=== PATIENT | female | born 1985 | race Caucasian/White ===

== ENCOUNTER 2016-11-14 13:33 | Emergency (ER) | payer BC ==
[~2016-11-14] VITALS: Ht 185.4 cm; Wt 79.9 kg
[~2016-11-14 13:33] MED LIST: PRENTAB26 PO
[2016-11-14 13:49] VITALS: TEMP 36.9; Ht 185.4 cm; Wt 79.9 kg
--- NOTE | 2016-11-14 15:09 | EMERGENCY ROOM VISIT NOTE ---
History Report prepared by Manda: Amy Horowitz Under the Supervision of: Dr. Bri Bergman M.D. First contact with patient: 14:35 Chief Complaint: CARDIAC ASSESSMENT Stated Complaint: TIGHT CHEST, LEFT ARM PAIN History of Present Illness The patient is a 31 year old female who presents to the Emergency Room with complaints of intermittent chest pain beginning this morning. The patient states that her pain started in her left elbow and moved up her arm and into her chest and jaw. She reports that it felt like someone "senait chopped" her in the sternum. She notes that her pain went away and then returned 3 hours ago. She states that she started to feel shortness of breath and anxious about coming into the ED. The patient states that she was feeding her child breakfast when her pain started. She denies any abdominal pain, cough, cold, fever, recent trips, recent surgery. The patient notes that she has a history of disc issues and has had back spasms and took muscle relaxers and pain medication for her pain. She notes that she had indigestion and heart burn when she was . Source of History: patient Onset: this morning Position: chest Quality: other (tightness) Timing: intermittent Associated Symptoms: + fevers, + cough, + SOB, + abdominal pain Note: Pt has arm pain and jaw pain. Review of Systems See HPI for pertinent positives & negatives. A total of 10 systems reviewed and were otherwise negative. Past Medical & Surgical Medical Problems: (1) No leakage of amniotic fluid into vagina (2) Normal labor (3) Post term at 41 weeks gestation (4) with 30 completed weeks gestation (5) Vaginal discharge during in third trimester Family History No pertinent family history stated. Social History Smoking Status: Never Smoker Marital Status: Housing Status: lives with significant other Occupation Status: employed Current/Historical Medications Scheduled Multivit/Min/Iron/Fol Ac/Pren ( Vitamin), 1 TAB PO DAILY Omeprazole (Prilosec), 20 MG PO DAILY Allergies Coded Allergies: Sulfa Antibiotics (Verified Allergy, Mild, Unknown rxn, 11/14/16) Physical Exam Vital Signs Date Time Temp Pulse Resp B/P (MAP) Pulse Ox O2 Delivery O2 Flow Rate FiO2 11/14/16 16:53 57 16 110/62 99 11/14/16 15:46 60 16 102/59 99 Room Air 11/14/16 15:01 65 11/14/16 13:52 95 Room Air 11/14/16 13:49 36.9 65 18 126/76 96 Room Air Physical Exam Vital signs reviewed. General: Well-appearing, in no significant distress. HEENT: No scleral icterus, PERRLA, neck supple. Atraumatic. Cardiovascular: Regular rate and rhythm, no extra sounds. Pulmonary: Clear to auscultation bilaterally, normal work of breathing. Abdomen: Soft, nontender, nondistended, positive bowel sounds. Musculoskeletal: Atraumatic, no peripheral edema. Neurologic: Patient awake alert and oriented x 3, full strength in all 4 extremities. Cranial nerves 2 through 12 grossly intact. Skin: Warm, dry, no rash Medical Decision & Procedures ER Provider Diagnostic Interpretation: Radiology results as stated below per my review and radiologist interpretation: CHEST ONE VIEW PORTABLE FINDINGS: Lung volumes are normal. There is no pneumothorax or pleural effusion. Lungs are clear. Cardiac size is normal. Mediastinal contours are unremarkable. There is no evidence of pulmonary edema. IMPRESSION: No acute cardiopulmonary findings. Electronically signed by: Noah Graff M.D. 11/14/2016 3:41 PM Dictated Date/Time: 11/14/2016 3:41 PM Right upper quadrant ultrasound GALLBLADDER-ABD LIMITED FINDINGS: Gallbladder is normal. Mild hepatomegaly. 2 small hemangiomas of the right hepatic lobe. Normal caliber bile ducts. Common bile duct 4 mm. Right kidney is negative for hydronephrosis. IMPRESSION: 1. Mild hepatomegaly. 2. Otherwise negative study Electronically signed by: Harsha Bruno M.D. 11/14/2016 4:27 PM Dictated Date/Time: 11/14/2016 4:25 PM Laboratory Results 11/14/16 14:40 Red Blood Count 4.48, Mean Corpuscular Volume 92.4, Mean Corpuscular Hemoglobin 31.7, Mean Corpuscular Hemoglobin Concent 34.3, Mean Platelet Volume 10.7, Neutrophils (%) (Auto) 51.5, Lymphocytes (%) (Auto) 39.8, Monocytes (%) (Auto) 6.4, Eosinophils (%) (Auto) 1.4, Basophils (%) (Auto) 0.7, Neutrophils # (Auto) 2.89, Lymphocytes # (Auto) 2.23, Monocytes # (Auto) 0.36, Eosinophils # (Auto) 0.08, Basophils # (Auto) 0.04 11/14/16 14:40 Test 11/14/16 14:40 11/14/16 15:24 11/14/16 15:27 White Blood Count 5.61 K/uL (4.8-10.8) Red Blood Count 4.48 M/uL (4.2-5.4) Hemoglobin 14.2 g/dL (12.0-16.0) Hematocrit 41.4 % (37-47) Mean Corpuscular Volume 92.4 fL (80-100) Mean Corpuscular Hemoglobin 31.7 pg (25-34) Mean Corpuscular Hemoglobin Concent 34.3 g/dl (32-36) Platelet Count 205 K/uL (130-400) Mean Platelet Volume 10.7 fL (7.4-10.4) Neutrophils (%) (Auto) 51.5 % Lymphocytes (%) (Auto) 39.8 % Monocytes (%) (Auto) 6.4 % Eosinophils (%) (Auto) 1.4 % Basophils (%) (Auto) 0.7 % Neutrophils # (Auto) 2.89 K/uL (1.4-6.5) Lymphocytes # (Auto) 2.23 K/uL (1.2-3.4) Monocytes # (Auto) 0.36 K/uL (0.11-0.59) Eosinophils # (Auto) 0.08 K/uL (0-0.5) Basophils # (Auto) 0.04 K/uL (0-0.2) RDW Standard Deviation 42.5 fL (36.4-46.3) RDW Coefficient of Variation 12.5 % (11.5-14.5) Immature Granulocyte % (Auto) 0.2 % Immature Granulocyte # (Auto) 0.01 K/uL (0.00-0.02) Anion Gap 7.0 mmol/L (3-11) Est Creatinine Clear Calc Drug Dose 101.3 ml/min Estimated GFR () 92.4 Estimated GFR (Non- 79.7 BUN/Creatinine Ratio 16.4 (10-20) Calcium Level 9.1 mg/dl (8.5-10.1) Total Bilirubin 0.4 mg/dl (0.2-1) Direct Bilirubin 0.1 mg/dl (0-0.2) Aspartate Amino Transf (AST/SGOT) 21 U/L (15-37) Alanine Aminotransferase (ALT/SGPT) 30 U/L (12-78) Alkaline Phosphatase 91 U/L (45-117) Total Protein 7.5 gm/dl (6.4-8.2) Albumin 4.2 gm/dl (3.4-5.0) Lipase 137 U/L (73-393) Bedside D-Dimer 191 ng/mlFEU (0-450) Bedside Troponin I < 0.030 ng/ml (0-0.045) Urine Color YELLOW Urine Appearance CLEAR (CLEAR) Urine pH 8.0 (4.5-7.5) Urine Specific [place] 1.009 (1.000-1.030) Urine Protein NEG (NEG) Urine Glucose (UA) NEG (NEG) Urine Ketones NEG (NEG) Urine Occult Blood NEG (NEG) Urine Nitrite NEG (NEG) Urine Bilirubin NEG (NEG) Urine Urobilinogen NEG (NEG) Urine Leukocyte Esterase TRACE (NEG) Urine WBC (Auto) 5-10 /hpf (0-5) Urine RBC (Auto) 0-4 /hpf (0-4) Urine Hyaline Casts (Auto) 1-5 /lpf (0-5) Urine Epithelial Cells (Auto) >30 /lpf (0-5) Urine Bacteria (Auto) 1+ (NEG) Urine Test NEG (NEG) Date/Time Source Procedure Growth Status 11/14/16 15:27 Urine , Clean Catch Urine Culture - Final Lactobacillus Species Gardnerella-Like Bacilli Complete Laboratory results per my review. ECG Indication: chest pain Rate (beats per minute): 62 Rhythm: normal sinus Findings: no acute ischemic change, no ectopy ED Course 1435: Past medical records reviewed. The patient was evaluated in room B9. A complete history and physical examination was performed. 1646: Upon reevaluation, the patient appeared to have improvement of her symptoms. I discussed findings with the patient. She verbalized agreement of the treatment plan. The patient was discharged home. Medical Decision DDx: Acute coronary syndrome, pulmonary embolus, aortic dissection, musculoskeletal pain, pneumonia, pleural effusion, pneumothorax Medication Reconciliation: I attest that I have personally reviewed the patient' s current medication list. Blood Pressure Screening: Patient was found to have normal blood pressure on screening and does not require follow-up. This pt was evaluated and appears to be in no distress. IV access was obtained and lab work was drawn. Pt was placed on the cardiac exercise specialist. EKG was negative for ischemia or ectopy. Lab work reveals normal troponin and d-dimer. CXR is clear. Pt was given a Rx for prilosec x 30 days. She was advised to f/ u with PCP for reevaluation and consideration of further cardiac/GI workup as indicated. She will return to the ED for worsening of symptoms or any medical concerns. Impression Primary Impression: Chest pain radiating to arm Scribe Attestation The scribe's documentation has been prepared under my direction and personally reviewed by me in its entirety. I confirm that the note above accurately reflects all work, treatment, procedures, and medical decision making performed by me. Departure Information Dispostion Home / Self-Care Prescriptions Omeprazole (PRILOSEC) 20 Mg Capcr 20 MG PO DAILY, #30 CAP Prov: Bri Bergman M.D. 11/14/16 Referrals No Doctor, Assigned (PCP) Forms IMPORTANT VISIT INFORMATION Patient Instructions My [facility] Additional Instructions Diagnosis: Chest pain with radiation to the arm. Prilosec 20 mg daily for the next 30 days. Avoid excessive alcohol and caffeine. Minimize aspirin, ibuprofen and Aleve. Follow-up with your physician for reevaluation, especially if symptoms continue. Return to the ER immediately for worsening of symptoms or any medical concerns.
[2016-11-14 15:17] LABS: BASO % 0.7 %; BASO ABS # 0.04 K/uL (0-0.2); COMPLETE YES; EOS % 1.4 %; HEMATOCRIT 41.4 % (37-47); IG% 0.2 %; LYMPH % 39.8 %; LYMPH ABS # 2.23 K/uL (1.2-3.4); MEAN CELL VOLUME 92.4 fL (80-100); MEAN CORPUSCULAR HEMOGLOBIN 31.7 pg (25-34); MEAN CORPUSCULAR HGB CONC 34.3 g/dl (32-36); MEAN PLATELET VOLUME 10.7 fL (7.4-10.4); MONO % 6.4 %; NEUT % 51.5 %; PLATELET COUNT 205 K/uL (130-400); RED BLOOD COUNT 4.48 M/uL (4.2-5.4); WHITE BLOOD COUNT 5.61 K/uL (4.8-10.8)
[2016-11-14 15:25] LABS: BUN/CREATININE RATIO 16.4 (10-20); CALCIUM 9.1 mg/dl (8.5-10.1); CREATININE 0.94 mg/dl (0.60-1.20); POTASSIUM 3.9 mmol/L (3.5-5.1)
[2016-11-14 15:43] LABS: POINT OF CARE TROPONIN I < 0.030 ng/ml (0-0.045)
--- NOTE | 2016-11-14 15:43 | DIAGNOSTIC IMAGING REPORT ---
CHEST ONE VIEW PORTABLE CLINICAL HISTORY: Chest pain and shortness of breath. COMPARISON STUDY: Chest radiograph December 02, 2008. FINDINGS: Lung volumes are normal. There is no pneumothorax or pleural effusion. Lungs are clear. Cardiac size is normal. Mediastinal contours are unremarkable. There is no evidence of pulmonary edema. IMPRESSION: No acute cardiopulmonary findings. Electronically signed by: Noah Graff M.D. 11/14/2016 3:41 PM Dictated Date/Time: 11/14/2016 3:41 PM
[2016-11-14 15:50] LABS: URINE APPEARANCE CLEAR (CLEAR); URINE BILIRUBIN NEG (NEG); URINE COLOR YELLOW; URINE EPITHELIAL CELL AUTO >30 /lpf (0-5); URINE NITRITE NEG (NEG); URINE SPECIFIC GRAVITY 1.009 (1.000-1.030); UROBILINOGEN NEG (NEG); ZZUR CULT IF INDIC CLEAN CATCH YES
[2016-11-14 15:54] LABS: MANUAL MICROSCOPIC REQUIRED? NO; REVIEW REQ? NO
[2016-11-14] MEDS ORDERED: PRLSR20 PO (16:22)
--- NOTE | 2016-11-14 16:29 | DIAGNOSTIC IMAGING REPORT ---
Right upper quadrant ultrasound GALLBLADDER-ABD LIMITED CLINICAL HISTORY: epigastric pain nausea TECHNIQUE: Ultrasound COMPARISON STUDY: None FINDINGS: Gallbladder is normal. Mild hepatomegaly. 2 small hemangiomas of the right hepatic lobe. Normal caliber bile ducts. Common bile duct 4 mm. Right kidney is negative for hydronephrosis. IMPRESSION: 1. Mild hepatomegaly. 2. Otherwise negative study Electronically signed by: Harsha Bruno M.D. 11/14/2016 4:27 PM Dictated Date/Time: 11/14/2016 4:25 PM
[2016-11-14 16:53] VITALS: BP 110/62; PULSE 57; O2SAT 99
== END 2016-11-14 16:56 | disposition home or self-care (01) ==
LOC: C.EDB 13:36
DX: R07.9 Chest pain, unspecified (principal); Z88.2 Allergy status to sulfonamides; Z79.899 Other long term (current) drug therapy

== ENCOUNTER → 2017-01-15 | Outpatient (CLI) | payer BC ==
[~2017-01-15] MED LIST changes: +PRLSR20 PO
== END | disposition home or self-care (01) ==
LOC: C.PAPS 07:45
PROVIDERS: ATTEND Physician Assistant
DX: Z01.419 Encounter for gynecological examination (general) (routine) without abnormal findings (principal)

== ENCOUNTER → 2017-01-15 | Outpatient (CLI) | payer BC ==
[2017-01-15 15:47] LABS: HEMATOCRIT 40.2 % (37-47); MEAN CELL VOLUME 93.1 fL (80-100); MEAN CORPUSCULAR HEMOGLOBIN 31.7 pg (25-34); MEAN CORPUSCULAR HGB CONC 34.1 g/dl (32-36); MEAN PLATELET VOLUME 11.1 fL (7.4-10.4); PLATELET COUNT 190 K/uL (130-400); RED BLOOD COUNT 4.32 M/uL (4.2-5.4); WHITE BLOOD COUNT 4.52 K/uL (4.8-10.8)
== END | disposition home or self-care (01) ==
LOC: C.LAB1850 15:03
PROVIDERS: ATTEND Physician Assistant
DX: N92.0 Excessive and frequent menstruation with regular cycle (principal)

== ENCOUNTER → 2017-12-29 | Outpatient (CLI) | payer BC ==
[~2017-12-29] MED LIST changes: -PRLSR20 PO
== END | disposition home or self-care (01) ==
LOC: C.LAB1850 13:40
PROVIDERS: ATTEND Obstetrics & Gynecology
DX: N91.2 Amenorrhea, unspecified (principal)

== ENCOUNTER 2023-05-06 17:28 | Inpatient (IN) ==
[2023-05-06] MEDS ORDERED: OXYTOCIN 30 UNITS/NSS 30 UNITS/500 ML BAG IV PRN ×2 (19:10)
[2023-05-06] MEDS ORDERED: LIDOCAINE 1% LOCAL 20 ML VIAL INFIL PRN (19:10)
--- NOTE | 2023-05-06 19:34 | History & Physical Report ---
Date of Service May 06, 2023 Assessment & Plan (1) Supervision of elderly multigravida: Plan: Nicole is a 37-year-old G4, P2 currently at 39 weeks 4 days gestational age presents for induction of labor. 1. Fetus: Category 1 tracing 2. Labor: We will start oxytocin per regular protocol and rupture membranes when appropriate 3. GBS negative 4. Vitals within normal limits (2) AMA (advanced maternal age) primigravida 35+: Admission and Anticipated Discharge Date Admission Date: May 06, 2023 History of Present Illness Primary Care Provider: NO PCP Nicole is a 37-year-old G4, P2 currently at 39 weeks 4 days gestational age presents for induction of labor. complicated by advanced maternal age and suspected large for gestational age with ultrasound at 93rd percentile at last evaluation. OB Labs: Blood Type O Positive 10/02/22 Antibody Screen NEGATIVE 10/02/22 Hemoglobin 12.1 g/dl (12.0-16.0) 04/09/23 Hematocrit 35.8 % (37.0-47.0) L 04/09/23 Mean Corpuscular Volume 91.4 fL (80.0-100.0) 10/02/22 Platelet Count 201 K/uL (130-400) 10/02/22 Rubella IgG Antibody Equivocal (Immune) L 10/02/22 Rapid Plasma Reagin Nonreactive (Nonreactive) 10/02/22 Hepatitis B Surface Antigen. NON-REACTIVE (NON-REACTIVE) 10/02/22 Hepatitis C Antibody (EIA) NON-REACTIVE (NON-REACTIVE) 10/02/22 HIV (1&2) Ag and Ab Confirmation NON-REACTIVE (NON-REACTIVE) 10/02/22 OB Optional Labs: Chlamydia trachomatis RNA Not Detected (NotDetected) 10/01/22 Neisseria gonorrhoeae RNA Not Detected (NotDetected) 10/01/22 Labs Reviewed: panorama--low risk but could not result Trisomy X - declines rescreen - sln 12/24 declines afp - sln Allergies Allergy/AdvReac Type Severity Reaction Status Date / Time Sulfa (Sulfonamide Allergy Mild Unknown rxn Verified 05/05/23 09:59 Antibiotics) Home Medications Medication Instructions Recorded Confirmed Type prenat.vits,tesha,[id number] 1 tab PO DAILY 09/23/22 05/06/23 History Patient History Medical History (Updated 05/06/23 @ 19:33 by Miles Madrigal MD) Menorrhagia Jaw pain IUD threads lost IUD check up Female pelvic pain Encounter for gynecological examination without abnormal finding Encounter for cosmetic surgery Chronic sinusitis Anxiety disorder Amenorrhea Acquired deviated nasal septum Abnormal uterine bleeding (AUB) Endometriosis Hx of ovarian cyst Vaginal discharge during in third trimester with 30 completed weeks gestation Post term at 41 weeks gestation Normal labor No leakage of amniotic fluid into vagina Surgical History S/P left knee arthroscopy S/P shoulder surgery S/P tooth extraction S/P laparoscopy x 2 for endometriosis, 1 simultaneously as appy S/P breast augmentation S/P appendectomy Family History (Updated 04/11/20 @ 11:02 by Lesley Bunch MD) Grandmother (Maternal) Breast cancer dx in 20s Mother Endometriosis Sister Hyperlipidemia Obesity Father Hyperlipidemia Grandmother (Paternal) Hypertension Denies family history of Ovarian cancer Colorectal cancer Uterine cancer Social History (Updated 09/23/22 @ 11:08 by Shari Parada) Smoking Status: Never smoker Do You Dip or Chew Tobacco: No; Hx Alcohol Use: No Hx Substance Use: No Preferred Language: Mongolian Whip Operator Required: No Beliefs That Will Affect Care: None marital status: marital status details: Rich (52) [phone] Current Living Situation: Spouse and Family Current Living Situation Comment: 4 kids current occupational status: employed current occupation: Realtor Feels Safe at Home: Yes Safety Concerns: Feels Safe At This Time Physical Exam Genitourinary: OB Exam Abdomen: + vertex Manual OB Exam: + cervical dilation 2 cm, + cervical effacement 40% and + station -2 OB Exam Monitor Tracing: + external FHT monitor used, + external uterine monitor used, + category I and + normal FHT variability; no early decelerations present, no late decelerations present and no variable decelerations Coding Level of Care Code None Diagnoses Encounter for supervision of multigravida of advanced maternal age in third trimester O09.523 Trimester: third trimester Primigravida of advanced maternal age in third trimester O09.513 Trimester: third trimester (1) Supervision of elderly multigravida Trimester: third trimester Qualified Code(s): O09.523 - Supervision of elderly multigravida, third trimester (2) AMA (advanced maternal age) primigravida 35+ Trimester: third trimester Qualified Code(s): O09.513 - Supervision of elderly primigravida, third trimester
[2023-05-06 19:54] LABS: Hematocrit (blood only) 36.1 % (37.0-47.0); Hemoglobin 12.2 g/dl (12.0-16.0); Mean Corpuscular Hemoglobin 31.9 pg (25.0-34.0); Mean Corpuscular Hgb Conc 33.8 g/dL (32.0-36.0); Mean Corpuscular Volume 94.3 fL (80.0-100.0); Mean Platelet Volume 11.4 fL (9.4-12.4); Platelet Count 153 K/uL (130-400); RDW Coefficient of Variation 13.3 % (11.5-14.5); RDW Standard Deviation 45.7 fL (36.4-46.3); Red Blood Count 3.83 M/uL (4.20-5.40); White Blood Count 7.21 K/ul (4.8-10.8)
[2023-05-06] MEDS: LACTATED RINGER'S 1,000 ML IV PRN ×2 (21:23→23:40)
[2023-05-06] MEDS ORDERED: ePHEDrine sulfate 50 MG/ML AMP ONE (22:46)
[2023-05-06] MEDS ORDERED: fentaNYL citrate PF 100 MCG/2 ML VIAL ONE (22:46)
[2023-05-06] MEDS ORDERED: SODIUM CHLORIDE 0.9% PF INJ 10 ML VIAL ONE (22:47)
[2023-05-06] MEDS ORDERED: fentANYL 2 MCG/ML BUPIVacaine 0.125%-NSS 100ML BAG ONE (22:47)
[2023-05-06] MEDS ORDERED: BUPIVACAINE 0.25% PF 30 ML VIAL ONE (22:47)
[2023-05-06] MEDS ORDERED: LIDOCAINE 2%/EPINEPHRINE 1:200,000 20 ML PF ONE (22:47)
[2023-05-06] MEDS ORDERED: NALBUPHINE HCL 5 MG in SYRINGE 0 ML IV PRN (22:59)
[2023-05-06] MEDS ORDERED: LIDOCAINE 2%/EPINEPHRINE 1:200,000 20 ML PF EPI STA (22:59)
[2023-05-06] MEDS ORDERED: diphenhydrAMINE 50 MG/ML VIAL IV PRN (22:59)
[2023-05-06] MEDS ORDERED: SODIUM CHLORIDE 0.9% PF INJ 10 ML VIAL EPI STA (22:59)
[2023-05-06] MEDS ORDERED: fentaNYL citrate PF 100 MCG/2 ML VIAL EPI STA (22:59)
[2023-05-06] MEDS ORDERED: ROPIVACAINE 0.5% PF 5 MG/ML 20 ML VIAL EPI PRN (22:59)
[2023-05-06] MEDS ORDERED: NALOXONE HCL 1 MG in SODIUM CHLORIDE 0.9% 1,000 ML IV PRN (22:59)
[2023-05-06] MEDS ORDERED: fentaNYL citrate PF 100 MCG/2 ML VIAL EPI PRN (22:59)
[2023-05-06] MEDS ORDERED: ePHEDrine sulfate 50 MG/ML AMP IV PRN (22:59)
[2023-05-06] MEDS ORDERED: BUPIVACAINE 0.25% PF 30 ML VIAL EPI STA (22:59)
[2023-05-06] MEDS ORDERED: BUPIVACAINE 0.25% PF 30 ML VIAL EPI PRN (22:59)
[2023-05-06] MEDS ORDERED: NALOXONE HCL 0.4 MG/1 ML VIAL/CARP IV PRN (22:59)
[2023-05-06] MEDS ORDERED: LIDOCAINE 2% MPF LOCAL 5 ML VIAL EPI PRN (22:59)
[2023-05-06] MEDS ORDERED: SODIUM CHLORIDE 0.9% PF INJ 10 ML VIAL EPI PRN (22:59)
[2023-05-06] MEDS ORDERED: fentANYL 2 MCG/ML BUPIVacaine 0.125%-NSS 100ML BAG EPI PRN (22:59)
--- NOTE | 2023-05-06 23:03 | Anesthesiology Consultation ---
Date of Service May 06, 2023 Assessment & Plan Chart Review Chart Review: Patient NOT seen in Pre Admission Testing and Acceptable Risk for Labor Epidural ASA ASA2 Proposed Anesthesia Anesthesia Type: Labor Epidural Risk / Benefits Reviewed With: PT / POA / Parent / Guardian, Accepts Plan and Informed Consent Obtained History Height/Weight Height: 6 ft 1 in Weight: 102.965 kg Allergies Allergy/AdvReac Type Severity Reaction Status Date / Time Sulfa (Sulfonamide Allergy Mild Unknown rxn Verified 05/05/23 09:59 Antibiotics) Medications Home Medications Medication Instructions Recorded Confirmed Last Taken prenat.vits,tesha,[id number] 1 tab PO DAILY 09/23/22 05/06/23 05/03/23 Active Medications Generic Name Dose Route Start Last Admin Trade Name Freq PRN Reason Stop Dose Admin Ephedrine Sulfate 10 mg 05/06/23 22:59 05/06/23 23:38 Ephedrine Sulfate 50 Mg/Ml Amp IV 05/07/23 22:58 10 mg Q5M PRN Administration Hypotension Fentanyl/Bupivacaine/Sodium Chlor 100 ml 05/06/23 22:59 05/06/23 23:35 Fentanyl 2 Mcg/Ml Bupivacaine 0.125%-Nss 100ml Bag EPI 05/07/23 22:58 100 ml PRN PRN Administration Pain R/T Labor Protocol Oxytocin 30 units in 500 mls @ 4 mls/hr 05/06/23 19:10 05/06/23 22:10 Pitocin 30 Units/Nss IV 05/08/23 19:09 0.24 units/hr .Q24H PRN 4 mls/hr Labor Induction/Augmentation Titration Protocol 0.24 UNITS/HR Lactated Ringer's 1,000 mls @ 125 mls/hr 05/06/23 19:10 05/06/23 23:40 Lr IV 05/08/23 19:09 125 mls/hr .Q8H PRN Administration L&D Protocol Protocol Past Medical History Medical History Menorrhagia Jaw pain IUD threads lost IUD check up Female pelvic pain Encounter for gynecological examination without abnormal finding Encounter for cosmetic surgery Chronic sinusitis Anxiety disorder Amenorrhea Acquired deviated nasal septum Abnormal uterine bleeding (AUB) Endometriosis Hx of ovarian cyst Vaginal discharge during in third trimester with 30 completed weeks gestation Post term at 41 weeks gestation Normal labor No leakage of amniotic fluid into vagina Exercise / Class Metabolic Activity II 4-5 Yardwork/Stairs/Walk up hill Past Family History Family History Grandmother (Maternal) Breast cancer dx in 20s Mother Endometriosis Sister Hyperlipidemia Obesity Father Hyperlipidemia Grandmother (Paternal) Hypertension Denies family history of Ovarian cancer Colorectal cancer Uterine cancer Past Surgical History Surgical History S/P left knee arthroscopy S/P shoulder surgery S/P tooth extraction S/P laparoscopy x 2 for endometriosis, 1 simultaneously as appy S/P breast augmentation S/P appendectomy Past Anesthesia History No Hx of Anesthesia Complications and No Family Hx of Anesthesia Complications History of PONV No Hx of PONV and No Hx of Motion Sickness Social History Smoking Status: Never smoker Do You Dip or Chew Tobacco: No Hx Alcohol Use: No Hx Substance Use: No Review of Systems ROS Unobtainable: All systems reviewed & are unremarkable except as noted in HPI & below Physical Exam Vital Signs Last Vital Signs Temp 36.8 C 05/06/23 19:51 Pulse 77 05/06/23 22:43 Resp 18 05/06/23 19:51 BP 119/67 05/06/23 22:43 Constitutional no acute distress ENMT Mouth: no TMJ abnormality Thyromental Distance: > or= 3.5 Finger Breadths Mallampati Class: II Neck normal visual inspection and trachea midline; neck extension not limited Respiratory normal respiratory effort Auscultation: lungs clear to auscultation bilaterally Cardiovascular Rate/Rhythm: regular rate and regular rhythm Heart Sounds: no murmur Musculoskeletal Spine: normal cervical ROM Extremities: full ROM of extremities Neurologic moves all extremities Psychiatric Orientation: alert and oriented x 3 Testing Laboratory Results 05/06/23 19:39
[2023-05-07 07:38] VITALS: O2SAT 94
[2023-05-07] MEDS ORDERED: ACETAMINOPHEN 325 MG TAB PO PRN (08:04)
[2023-05-07] MEDS ORDERED: MEASLES, MUMPS & RUBELLA VIRUS VACCINE (MMR) VIAL SQ ONE (08:04)
[2023-05-07] MEDS ORDERED: DIPHTHERIA/TETANUS/PERTUSSIS Vaccine (Tdap, Age 7+yrs) 0.5mL SYR/VL IM ONE (08:04)
[2023-05-07] MEDS ORDERED: HYDROCORTISONE ACETATE 25 MG SUPP PR PRN (08:04)
[2023-05-07] MEDS ORDERED: OXYTOCIN 30 UNITS/NSS 30 UNITS/500 ML BAG IV PRN (08:04)
[2023-05-07] MEDS ORDERED: BENZOCAINE 20% SPRY 85 APPLN/85 GM CAN EXT PRN (08:04)
[2023-05-07] MEDS ORDERED: bisacodyL 10 MG SUPP PR PRN (08:04)
--- NOTE | 2023-05-07 09:13 | Delivery Summary ---
Vaginal Delivery Summary Date of Service May 07, 2023 Vaginal Delivery Summary Nicole progressed to 10 cm dilated 100% effaced +2 station pushed over intact perineum with epidural anesthesia and delivered a viable with weight and Apgars pending. Had the delivered in SANDOR position restituted to right transverse. A double nuchal cord was noted which was reduced. Body and shoulders quickly followed. was noted be vigorous soon after delivery and a 1 minute delayed cord clamping was initiated. Cord was then double clamped and cut. remained on the maternal abdomen. Cord blood was obtained. Attention was then turned to delivery of the placenta which delivered intact with three-vessel cord gentle cord traction. Inspection of the perineum vagina and cervix there is noted to be no lacerations. Needle sponge and instrument counts were correct at the completion of the case. Estimated blood loss 200 mL and no complications noted. [facility] Vaginal Delivery Charge Delivery Type Details: [facility]3]
--- NOTE | 2023-05-07 09:25 | Anesthesia Procedure Note ---
Date of Service May 07, 2023 Anesthesia Post Epidural Note Vital Signs Vital Signs: Temp Pulse Resp BP Pulse Ox 36.7 C 96 H 20 108/56 L 94 05/07/23 07:15 05/07/23 09:13 05/07/23 07:15 05/07/23 09:13 05/07/23 07:37 Notes Mental Status: alert / awake / arousable and participated in evaluation Nausea / Vomiting: adequately controlled Pain: adequately controlled Airway Patency, RR, SpO2: stable & adequate BP & HR: stable & adequate Hydration State: stable & adequate Neuraxial Anesthesia: was administered and sensory block is resolving Anesthetic Complications: no major complications apparent and Pt Satisfied with anesthetic care Epidural: Removed without complications and With tip intact
[2023-05-07] MEDS: FERROUS SULFATE 325 MG TAB PO SCH (11:09)
[2023-05-07] MEDS: DOCUSATE SODIUM 100 MG CAP PO SCH ×2 (11:09→20:09)
[2023-05-07] MEDS: PRENATAL VITAMIN 1 TAB PO SCH (11:09)
[2023-05-07] MEDS: IBUPROFEN 600 MG TAB PO PRN ×2 (15:16→20:09)
--- NOTE | 2023-05-08 04:33 | Obstetrical Progress Note ---
Date of Service <José Miguelsatish Bush DO - Last Filed: 05/08/23 05:57> May 08, 2023 Assessment & Plan <José Miguel Bush - Last Filed: 05/08/23 05:57> (1) (spontaneous vaginal delivery): Plan 33 year old female, , PPD#1: Eating well, voiding well, ambulating well Vitals reviewed, WNL Pain well controlled with motrin Routine post care - OOB, ambulation, diet progression as tolerated Will have 6 week follow up with Dr. Madrigal <Lesley Bunch MD - Last Filed: 05/08/23 07:34> (1) (spontaneous vaginal delivery): Subjective <José Miguel Bush DO - Last Filed: 05/08/23 05:57> Ambulation: ambulating normally Voiding: no voiding problems Passing Gas:: Yes Diet Tolerance:: regular diet Lochia:: Small Feeding Type:: breast feeding Pain well controlled with Motrin Review of Systems -Denies fever or chills -Denies dyspnea, chest pain, or palpitations -Denies dysuria -Denies headache or changes in vision Physical Exam <José Miguel Bush DO - Last Filed: 05/08/23 05:57> General: Alert and oriented. No acute distress Cardiac: Regular rate and rhythm, no murmurs appreciated Respiratory: Lungs clear to auscultation bilaterally, No increased work of breathing Abdominal: Soft, non-tender, non-distended. Bowel sounds present. Uterus: Uterine fundus firm, palpable below umbilicus Extremities: No lower extremity edema, calves non-tender bilaterally Results & Data <José Miguel Bush DO - Last Filed: 05/08/23 05:57> Vital Signs (Past 12 Hours) Vital Signs Temp Pulse Resp BP O2 Del Method 05/08/23 00:24 36.8 C 62 16 110/65 Room Air 05/07/23 20:00 36.6 C 80 16 109/67 Room Air Supervising Physician <Lesley Bunch MD - Last Filed: 05/08/23 07:34> Co-Signing Physician Notes Resident Physician Supervision Note: I interviewed and examined the patient. Discussed with Dr. Bush and agree with findings and plan as documented in the note. Any exceptions or clarifications are listed here: PP1 s/p , doing well. VSS, exam benign and wnl. Desires dc home today Documented By: Lesley Bunch MD Resident Activity Tracking <José Miguel Bush DO - Last Filed: 05/08/23 05:57> Resident Involvement: Resident Care Provided Care Provided: OB Delivery
[2023-05-08 05:41] VITALS: TEMP 97.9
[2023-05-08] MEDS: IBUPROFEN 600 MG TAB PO PRN (06:14)
[2023-05-08] MEDS: PRENATAL VITAMIN 1 TAB PO SCH (07:35)
[2023-05-08] MEDS: DOCUSATE SODIUM 100 MG CAP PO SCH (07:35)
[2023-05-08] MEDS: FERROUS SULFATE 325 MG TAB PO SCH (07:35)
[2023-05-08 09:05] VITALS: BP 114/66; PULSE 64; RESP 18
[2023-05-08] MEDS ORDERED: bisacodyL 5 MG TABEC PO SCH (20:00)
== END 2023-05-08 09:30 | disposition home or self-care (01) | DRG 807 ==
LOC: 4S1 19:09 → 4E2 05-07 11:10
DX: Z3A.39 39 weeks gestation of pregnancy; O69.81X0 Labor and delivery complicated by cord around neck, without compression, not applicable or unspecified; Z37.0 Single live birth; Z88.2 Allergy status to sulfonamides